=== PATIENT | male | born 1975 | race Caucasian/White ===

== ENCOUNTER 2016-05-25 09:28 | Emergency (ER) | payer OTHER ==
[~2016-05-25] VITALS: Ht 165.1 cm; Wt 90.0 kg
[2016-05-25 09:30] VITALS: BP 147/86; PULSE 94; RESP 18; TEMP 98; O2SAT 99
[2016-05-25] MEDS ORDERED: GLIP5TAB8 PO (09:42)
--- NOTE | 2016-05-25 09:44 | PD ---
HPI . low back pain radiating to left thigh Chief Complaint: Back/ Neck Pain or Injury Time Seen by Provider: 09:38 Travel History International Travel<30 days: No Contact w/Intl Traveler<30days: No Traveled to known affect area: No History of Present Illness HPI 40-year-old male with history of diabetes and chronic back pain here with complaints of lower back pain radiating to his left thigh. Patient tells me that this initially started yesterday. He tried taking 2 [id number] Tylenol without much relief. He rates the pain as 9/10 and it is described as a shooting sensation. He denies any recent injury. He was not doing any type of strenuous activity or working. He says the most labor he endured yesterday was walking his dogs. He does see a chiropractor monthly for chronic back issues. He denies any bowel or bladder dysfunction. He has no saddle anesthesia. He has no other complaints. He is accompanied by his . PFSH Past Medical History Diabetes: Yes Patient Takes Glucophage: No Tetanus Vaccination: < 5 Years Social History Alcohol Use: Yes Tobacco Use: No Substance Use: No Allergies-Medications (Allergen,Severity, Reaction): Coded Allergies: No Known Allergies (Unverified , 05/25/16) Reported Meds & Prescriptions Reported Meds & Active Scripts Active Prednisone 50 Mg Tab 50 Mg PO DAILY Flexeril (Cyclobenzaprine HCl) 5 Mg Tab 5 Mg PO TID Reported Glipizide 5 Mg Tab 5 Mg PO BIDAC Take 30 minutes before a meal Review of Systems General / Constitutional: No: Fever Eyes: No: Visual changes HENT: No: Headaches Cardiovascular: No: Chest Pain or Discomfort Respiratory: No: Shortness of Breath Gastrointestinal: No: Abdominal Pain Genitourinary: No: Dysuria Musculoskeletal: Positive: Pain (low back radiating to left thigh) Skin: No Rash Neurologic: No: Weakness Psychiatric: No: Depression Endocrine: No: Polydipsia Hematologic/Lymphatic: No: Easy Bruising Physical Exam Narrative GENERAL: AAO x 3, no acute distress, Well-nourished, well-developed patient. SKIN: Warm and dry. No visible rashes or bruising. HEAD: Normocephalic and atraumatic. EYES: No scleral icterus. No injection or drainage. ENT: No nasal drainage noted. Mucous membranes pink. Airway patent. NECK: Supple, trachea midline. No JVD. CARDIOVASCULAR: Regular rate and rhythm without murmurs, gallops, or rubs. RESPIRATORY: Breath sounds equal bilaterally. No accessory muscle use. No rhonchi or rales. GASTROINTESTINAL: Abdomen soft, non-tender, nondistended. EXTREMITIES: No cyanosis or edema. Tenderness to left gluteus muscle and pain shoots to left leg BACK: Nontender without obvious deformity. No CVA tenderness. no spinal or paraspinal tenderness; SLR on left is positive PSYCH: AAO x 3, normal affect. Data Data Last Documented VS Vital Signs Date Time Temp Pulse Resp B/P Pulse Ox O2 Delivery O2 Flow Rate FiO2 05/25/16 09:30 98.0 94 18 147/86 99 Orders Ketorolac Inj (Toradol Inj) (05/25/16 09:45) Orphenadrine Inj (Norflex Inj) (05/25/16 09:45) MDM Medical Decision Making Medical Screen Exam Complete: Yes Emergency Medical Condition: Yes Medical Record Reviewed: Yes (no prior) Differential Diagnosis sciatica, acute on chronic back pain, less likely fracture Narrative Course 40-year-old male with history of diabetes and chronic back pain here with complaints of lower back pain radiating to his left thigh. Patient tells me that this initially started yesterday. He tried taking 2 [id number] Tylenol without much relief. He rates the pain as 9/10 and it is described as a shooting sensation. He denies any recent injury. He was not doing any type of strenuous activity or working. He says the most labor he endured yesterday was walking his dogs. He does see a chiropractor monthly for chronic back issues. He denies any bowel or bladder dysfunction. He has no saddle anesthesia. He has no other complaints. He is accompanied by his . Patient seen and examined. He appears to have sciatica. I do not suspect any other injuries. My index suspicion is low for fracture or any cauda equina. His SLR is positive on the left. I have provided him with Toradol and Norflex in the emergency department. After meds: pt laughing and smiling feels much better; his tells me he is doing much better. I'll send him home with a course of muscle relaxers and steroids I've explained that he will need to follow-up his primary care provider if symptoms persist as he may need some physical therapy or additional workup. Patient verbalized understanding of instructions, questions were answered, and thanked me for their care. I advised them if their condition worsens, please return to the nearest emergency room for further care. Diagnosis Primary Impression: Sciatica Qualified Code: M54.32 - Sciatica of left side Patient Instructions: General Instructions, Sciatica (ED) Additional Instructions: Please return to emergency department if your symptoms return or worsen. Follow up with your primary care provider. Take medications as prescribed. Muscle relaxers can cause drowsiness. Do not drive, swim or operate heavy machinery while using these medications. Med/Other Pt SpecificInfo: Prescription(s) given Scripts Prednisone 50 Mg Tab50 Mg PO DAILY #5 TAB Prov:Maldonado Muñoz MD 05/25/16 Cyclobenzaprine (Flexeril)5 Mg Tab5 Mg PO TID #21 TAB Ref 0 Prov:Maldonado Muñoz MD 05/25/16 Disposition: 01 DISCHARGE HOME Condition: Stable Breanna Lee May 25, 2016 09:44
[2016-05-25] MEDS ORDERED: ORPHENADRINE INJ 60 MG/2 ML AMP IM ONE (09:45)
[2016-05-25] MEDS ORDERED: KETOROLAC TROMETHAMINE 60 MG/2 ML (IM) VIAL IM ONE (09:45)
[2016-05-25] MEDS ORDERED: CYCL5TAB PO (09:52)
[2016-05-25] MEDS ORDERED: PRED50 PO (09:52)
== END 2016-05-25 10:19 | disposition home or self-care (01) ==
LOC: NEPD 09:28
DX: M54.32 Sciatica, left side (principal); E11.9 Type 2 diabetes mellitus without complications; Z79.4 Long term (current) use of insulin
CPT/HCPCS: 96372; 99283; J1885; J2360